=== PATIENT | female | born 1995 | race Caucasian/White ===

== ENCOUNTER 2017-04-20 23:00 | Emergency (ER) | payer SELFPAY ==
[~2017-04-20] VITALS: Ht 154.9 cm; Wt 67.7 kg
[2017-04-20 23:17] VITALS: BP 115/86; PULSE 87; TEMP 97.8
[2017-04-20] MEDS ORDERED: ELIMITE TOP (23:38)
== END 2017-04-21 00:51 | disposition home or self-care (01) ==
LOC: COL.ER 23:00
DX: S93.402A Sprain of unspecified ligament of left ankle, initial encounter (principal); Z20.7 Contact with and (suspected) exposure to pediculosis, acariasis and other infestations; X58.XXXA Exposure to other specified factors, initial encounter